=== PATIENT | male | born 1970 | race Hispanic/Latino ===

== ENCOUNTER 2016-12-23 15:08 | Emergency (ER) | payer SELFPAY ==
[2016-12-23 15:09] VITALS: BMI 24.7
[2016-12-23 15:23] VITALS: RESP 16
--- NOTE | 2016-12-23 15:42 | C.PDOC ---
History Of Present Illness 46 yr old male brought in via EMS, presents to the ER for alcohol intoxication and malingering. Patient denies chest pain, SOB, SI or HI. Time Seen by Provider: 12/23/16 15:21 Chief Complaint (Nursing): Substance Abuse History Per: Patient, EMS History/Exam Limitations: no limitations Onset/Duration Of Symptoms: Persistent Modifying Factor(s): Alcohol Past Medical History Reviewed: Historical Data, Nursing Documentation, Vital Signs Vital Signs: Last Vital Signs Temp 98.8 F 12/23/16 15:18 Pulse 95 H 12/23/16 15:18 Resp 16 12/23/16 15:18 BP 133/77 12/23/16 15:18 Pulse Ox 96 12/23/16 15:50 Family History: States: No Known Family Hx - Social History Hx Alcohol Use: Yes Hx Substance Use: No - Immunization History Hx Tetanus Toxoid Vaccination: No Hx Influenza Vaccination: No Hx Pneumococcal Vaccination: No Review Of Systems Except As Marked, All Systems Reviewed And Found Negative. Cardiovascular: Negative for: Chest Pain Respiratory: Negative for: Shortness of Breath Psych: Negative for: Suicidal ideation Physical Exam - Physical Exam Appears: Non-toxic, No Acute Distress, Unkempt, Other ((+) Alcohol on breath ) Skin: Warm, Dry, No Rash Head: Atraumatic, Normacephalic Eye(s): bilateral: Eyelid Inflammation Chest: Symmetrical, No Tenderness Cardiovascular: Rhythm Regular, No Murmur Respiratory: Normal Breath Sounds, No Rales, No Wheezing Gastrointestinal/Abdominal: Normal Exam, Soft, No Tenderness, No Guarding, No Rebound Extremity: Normal ROM, No Swelling Neurological/Psych: Oriented x3, Normal Speech, Normal Motor ED Course And Treatment O2 Sat by Pulse Oximetry: 96 Medical Decision Making Medical Decision Making: typical alcohol abuse and malingering. no acute abd issues. Recent eval for mild elev LFT's but normal bili's, with LOW susp of acute biliary disease Disposition Doctor Will See Patient In The: Office Counseled Patient/Family Regarding: Studies Performed, Diagnosis - Disposition Referrals: Alcoholics Anonymous [Outside] [facility] [Outside] [email or web address] [Outside] Disposition: HOME/ ROUTINE Disposition Time: 15:42 Condition: GOOD Instructions: Abuse of Alcohol (ED) Print Language: SERBIAN - Clinical Impression Clinical Impression: Alcohol abuse - Scribe Statement The provider has reviewed the documentation as recorded by the Scribe Sharonda Kaur Provider Attestation: All medical record entries made by the Scribe were at my direction and personally dictated by me. I have reviewed the chart and agree that the record accurately reflects my personal performance of the history, physical exam, medical decision making, and the department course for this patient. I have also personally directed, reviewed, and agree with the discharge instructions and disposition.
[2016-12-23 15:57] VITALS: BP 129/90; PULSE 90; TEMP 98.2; O2SAT 100
== END 2016-12-23 15:55 | disposition home or self-care (01) ==
LOC: C.ER 15:08
DX: F10.120 Alcohol abuse with intoxication, uncomplicated (principal); Y90.9 Presence of alcohol in blood, level not specified